=== PATIENT | male | born 1970 | race Caucasian/White ===

== ENCOUNTER 2018-01-18 10:18 | Outpatient (CLI) | payer OTHER ==
[~2018-01-18 10:18] MED LIST: Iopamidol 370 76% 100 ML VIAL ONE
--- NOTE | 2018-01-18 14:02 | CT ---
CT CHEST WITH IV CONTRAST: Date: 01/18/18 HISTORY: Pulmonary nodule. FINDINGS: Correlation is made with the chest radiograph of 01/08/18 from [facility]. No evidence of mediastinal, hilar, or axillary mass or lymphadenopathy is seen. The thoracic aorta is well opacified without aneurysm or dissection. No pneumothoraces, focal areas of consolidation, pulm onary nodules, or lung masses are seen. There are degenerative changes in the spine. Upper abdominal tomograms are unremarkable. IMPRESSION: No significant abnormalities are seen. POS: OFF
== END 2018-01-18 10:19 | disposition home or self-care (01) ==
LOC: NAV RAD 10:18
DX: R91.1 Solitary pulmonary nodule (principal)
CPT/HCPCS: 71260